=== PATIENT | male | born 1940 | race Caucasian/White ===

== ENCOUNTER 2019-12-16 04:26 | Outpatient (CLI) | payer MEDICARE, OTHER, SELFPAY ==
[2019-12-16 18:08] LABS: SARS-CoV-2 RNA PCR Negative
== END 2019-12-16 04:27 | disposition home or self-care (01) ==
LOC: ANHCOVIDDT 04:26
PROVIDERS: PCP Internal Medicine; Visit Provider Internal Medicine Gastroenterology
DX: Z01.812 Encounter for preprocedural laboratory examination (principal); Z11.59 Encounter for screening for other viral diseases
CPT/HCPCS: 87635; C9803; U0003

== ENCOUNTER 2019-12-19 00:33 | Day surgery (SDC) | payer MEDICARE, OTHER, SELFPAY ==
[2019-12-13 11:48] VITALS: BMI 23.8
[2019-12-19 09:06] VITALS: BP 144/60; PULSE 56; RESP 18; TEMP 36.6; O2SAT 100; BMI 23.8
--- NOTE | 2019-12-19 09:15 | WPDANESEPPF ---
Anes - Initial Pre Proc Eval Procedure: Operation Date: 12/19/19 10:30 Proposed Procedures p Screening Colonoscopy - Fazal Rome MD Date/Time: 12/19/19 09:15 Surgeon: Fazal Rome MD Pre Op Diagnosis: Hx Of Polyps Patient Data Age: 79 Gender: M Height: 5 ft 6 in Weight: 67 kg Last Vital Signs Temp 36.6 C 12/19/19 09:06 Pulse 56 L 12/19/19 09:06 Resp 18 12/19/19 09:06 BP 144/60 H 12/19/19 09:06 Pulse Ox 100 12/19/19 09:06 Allergies Allergy/AdvReac Type Severity Reaction Status Date / Time No Known Allergies Allergy Mild Verified 12/19/19 09:05 Home Medications Medication Instructions Recorded Confirmed Type No Home Medications 12/13/19 12/13/19 History Patient hx anesthesia problems: none Family hx anesthesia problems: none PMFSH Social History Social History Gender identity (if verbalized by the patient): Male Anes - Eval Final PreProcedure Day of Procedure 12/19/19 09:15 Patient weight: normal Heart: regular rate and rhythm Lungs: clear to auscultation Airway: Mallampati scale class II Neurological: alert and oriented Last oral intake: >/= 8 hours ASA classification: I Emergent: no Anesthetic plan: proceed Anesthesia type and monitoring: general GIVS and standard monitoring Informed Consent: The patient's anesthetic plan and its attendant risks and benefits were discussed with the patient/family/POA. Questions were solicited and answers provided to the satisfaction of the patient/family/POA.
[2019-12-19] MEDS: LACTATED RINGERS 1,000 ML 150 ML IV CONT (09:30)
--- NOTE | 2019-12-19 09:51 | PM.HPGS ---
History of Present Illness History of Present Illness Consent: Risks, benefits, and alternatives have been discussed and questions answered. Patient agrees to proceed with procedure. Chief complaint: Hx Of Polyps Narrative: Emil Chun is a 79 year old male With a history of polyps FORMERLY [facility], 1928–1983 Social History Social History Gender identity (if verbalized by the patient): Male Meds Home Medications and Allergies Home Medications Medication Instructions Recorded Confirmed Type No Home Medications 12/13/19 12/13/19 History Allergies Allergy/AdvReac Type Severity Reaction Status Date / Time No Known Allergies Allergy Mild Verified 12/19/19 09:05 Vital Signs Vital Signs - 24 hr 12/19/19 09:06 Temperature 36.6 C Pulse Rate 56 L Respiratory Rate 18 Blood Pressure 144/60 H Pulse Oximetry 100 Exam Resp: Auscultation: clear to auscultation bilaterally Cardio: Rate: regular rate Rhythm: regular rhythm GI: GI Palp: Yes Soft to palpation and No Tenderness to palpation present (GI) Assessment and Plan Assessment and plan (1) Colon cancer screening: Code(s): Z12.11 - Encounter for screening for malignant neoplasm of colon Status: Acute Assessment and Plan: Colonoscopy with possible biopsy or polypectomy or cautery or injection of substances.
[2019-12-19 10:48] VITALS: BP 108/49; PULSE 49; RESP 16; O2SAT 100
[2019-12-19 10:58] VITALS: BP 122/57; PULSE 46; RESP 15; O2SAT 100
[2019-12-19 11:04] VITALS: BP 149/66; PULSE 54; RESP 16; O2SAT 100
== END 2019-12-19 11:24 | disposition home or self-care (01) ==
PROVIDERS: PCP Internal Medicine; Visit Provider Internal Medicine Gastroenterology
PROC: 0DJD8ZZ Inspection of Lower Intestinal Tract, Via Natural or Artificial Opening Endoscopic (ICD-10-PCS; CPT 45378; principal; 2019-12-19 10:30)
DX: Z12.11 Encounter for screening for malignant neoplasm of colon (principal); K57.30 Diverticulosis of large intestine without perforation or abscess without bleeding; Z86.010 Personal history of colon polyps
CPT/HCPCS: G0105; J2704; J7120

== ENCOUNTER 2021-04-15 13:33 | Outpatient (CLI) | payer MEDICARE, OTHER, SELFPAY ==
--- NOTE | ~2021-04-15 | US_ITS ---
US renal BI 04/15/2021 14:04 Procedure: Realtime transabdominal ultrasound of the kidneys and bladder. Indication: Vitamin D deficiency Comparison: No prior studies for comparison. Findings: Renal echotexture is normal bilaterally without hydronephrosis, contour deforming mass or r enal calculus. The right kidney measures 9.8 cm and left kidney measures 12.2 cm. Bladder within nor mal limits. Bladder is mildly prominent. Prevoid volume is 90 cc. Postvoid volume is 20 cc. Impression: 1: Small post void residual measuring 20 cc. Reviewed, dictated and finalized at location A. Impression: 1: Small post void residual measuring 20 cc.
== END 2021-04-15 13:34 | disposition home or self-care (01) ==
LOC: ANHIMG 13:36
PROVIDERS: PCP Internal Medicine
DX: E55.9 Vitamin D deficiency, unspecified (principal); E87.5 Hyperkalemia
CPT/HCPCS: 76775

== ENCOUNTER 2022-01-02 09:25 | Emergency (ER) | payer MEDICARE, OTHER, SELFPAY ==
[2022-01-02] VITALS (8 sets, daily range): BP systolic 173–184; BP diastolic 64–82; PULSE 52–57; RESP 14–16; TEMP 36.2; O2SAT 98–100
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
--- NOTE | 2022-01-02 11:40 | PC.NURSE ---
[facility] cancelled
== END 2022-01-02 11:50 | disposition short-term general hospital (02) ==
PROVIDERS: Emergency Provider Emergency Medicine; PCP Internal Medicine
DX: S02.841A Fracture of lateral orbital wall, right side, initial encounter for closed fracture (principal); S02.31XA Fracture of orbital floor, right side, initial encounter for closed fracture; S02.40CA Maxillary fracture, right side, initial encounter for closed fracture; S02.19XA Other fracture of base of skull, initial encounter for closed fracture; S02.40EA Zygomatic fracture, right side, initial encounter for closed fracture; S01.111A Laceration without foreign body of right eyelid and periocular area, initial encounter; M47.812 Spondylosis without myelopathy or radiculopathy, cervical region; M19.011 Primary osteoarthritis, right shoulder; M19.031 Primary osteoarthritis, right wrist; M18.9 Osteoarthritis of first carpometacarpal joint, unspecified; M19.041 Primary osteoarthritis, right hand; V18.4XXA Pedal cycle driver injured in noncollision transport accident in traffic accident, initial encounter
CPT/HCPCS: 12011; 70450; 70486; 72125; 73030; 73080; 73130; 99285